=== PATIENT | male | born 1970 | race Caucasian/White ===

== ENCOUNTER 2017-08-29 13:00 | Outpatient (RCR) | payer OTHER, SELFPAY | END 2017-08-29 13:05 | disposition home or self-care (01) | LOC: PT 13:00 | PROVIDERS: Family Provider Student in an Organized Health Care Education/Training Program; Visit Provider Student in an Organized Health Care Education/Training Program | DX: M72.2 Plantar fascial fibromatosis (principal) | CPT/HCPCS: 97010; 97033; 97035; 97110; 97140 ==

== ENCOUNTER 2017-09-30 04:01 | Emergency (ER) | payer OTHER, SELFPAY ==
[2017-09-30 04:06] VITALS: BP 145/91; PULSE 86; RESP 18; TEMP 36.8; O2SAT 98; BMI 35.9
[2017-09-30 04:55] LABS: Anion Gap 11.4 mEq/L (5-15); Blood Urea Nitrogen 10 mg/dL (7-18); Carbon Dioxide 27 mmol/L (21.0-32.0); Chloride 103 mmol/L (98-107); Creatinine Clearance Estimated 294 mL/min (0-300); Creatinine,Serum 0.57 mg/dL (0.70-1.30); Estimated Glomerular Filt Rate 155 ml/min (>60); GFR (African American) 187 ML/MIN (>60); Glucose 113 mg/dL (74-106); Potassium 3.4 mmoL/L (3.5-5.1); Sodium 138 mmol/L (136-145)
[2017-09-30 04:56] LABS: Basophils % 0.3 % (0.1-2.0); Eosinophils % 0.9 % (0.1-12.0); Hematocrit 44.9 % (42.0-52.0); Hemoglobin 14.6 g/dL (14.1-18.0); Lymphocytes # 0.8 K/mm3 (0.7-4.5); Lymphocytes % 18.7 K/mm3 (10-50); Mean Corpuscular HGB Conc 32.4 g/dL (31.8-35.4); Mean Corpuscular Hemoglobin 29.4 pg (27.0-31.2); Mean Corpuscular Volume 90.5 fl (80-94); Mean Platelet Volume 7.6 fl (7.4-10.4); Monocytes # 0.4 K/mm3 (0.1-1.0); Monocytes % 8.8 % (1.7-9.3); Neutrophils % 71.2 % (37.0-80.0); Platelet Count 112 K/mm3 (142-424); Red Blood Count 4.96 M/mm3 (4.60-6.20); Red Cell Distribution Width 13.8 % (11.5-17.5); White Blood Count 4.2 K/mm3 (4.8-10.8)
--- NOTE | 2017-09-30 05:19 | [facility].EDBACK ---
ED Disposition Clinical Impression: Strain of lumbar region Qualifiers: Encounter type: initial encounter Qualified Code(s): S39.012A - Strain of muscle, fascia and tendon of lower back, initial encounter Disposition: Home, Self-Care Condition on Discharge: Good Instructions: DI for Low Back Pain Additional Instructions: use meds and see pcp for follow up Prescriptions: Benzonatate [Tessalon Perle 100mg Cap] 100 mg PO TID #30 cap Referrals: Claudia Liu APRN [Primary Care Provider] - - Critical Care Critical Care Time: No Attestation: On 09/30/17, the high probability of a clinically significant, sudden or life threatening deterioration of the following system(s) required my full and direct attention, intervention and personal management. The time I documented below is in addition to time spent performing reported procedures but includes the following listed in this critical care notation. Medical Decision Making - Medical Records Medical records reviewed: Yes: I reviewed the patient's medical records. - [place] Inquiry Pt receiving controlled substance: No Vital Signs: 09/30/17 04:06 Temperature 98.3 F Temperature Source Oral Pulse Rate [Left Radial] 86 Respiratory Rate 18 Blood Pressure [Left Arm] 145/91 Blood Pressure Mean [Left Arm] 109 Blood Pressure Source [Left Arm] Automatic Cuff Blood Pressure Position [Left Arm] Sitting 02 Sat by Pulse Oximetry 98 Oxygen Delivery Method Room Air - Lab Data Lab results reviewed: Yes: I reviewed the patient's lab results. Lab Results 09/30/17 04:35: Sodium 138, Potassium 3.4 L, Chloride 103, Carbon Dioxide 27, Anion Gap 11.4, BUN 10, Creatinine 0.57 L, Estimated Creat Clear 294, Estimated GFR 155, Est GFR ( Amer) 187, Glucose 113 H 09/30/17 04:35: WBC 4.2 L, RBC 4.96, Hgb 14.6, Hct 44.9, MCV 90.5, MCH 29.4, MCHC 32.4, RDW 13.8, Plt Count 112 L, MPV 7.6, Neut % (Auto) 71.2, Lymph % (Auto) 18.7, [place] % (Auto) 8.8, Eos % (Auto) 0.9, Baso % (Auto) 0.3, Neut # (Auto) 3.0, Lymph # (Auto) 0.8, [place] # (Auto) 0.4, Eos # (Auto) 0.0, Baso # (Auto) 0.0 Result diagrams: 09/30/17 04:35 09/30/17 04:35 Orders (Tests/Meds): ED MEDICATIONS Generic Name Dose Route Start Last Admin Trade Name Freq PRN Reason Stop Dose Admin Sodium Chloride 1,000 mls @ 999 mls/hr 09/30/17 04:30 09/30/17 04:31 Sod Chlor 0.9% 1000ml Bag IV 09/30/17 05:30 999 mls/hr .Q1H1M LIDIA Administration Discontinued Medications Generic Name Dose Route Start Last Admin Trade Name Freq PRN Reason Stop Dose Admin Ketorolac Tromethamine 30 mg 09/30/17 04:16 09/30/17 04:31 Toradol 30mg/Ml Vial IV 09/30/17 04:17 30 mg ONCE ONE Administration Ondansetron HCl 4 mg 09/30/17 04:16 09/30/17 04:31 Zofran 4mg/2ml Vial IV 09/30/17 04:17 4 mg ONCE ONE Administration Back Pain HPI - General Chief Complaint: Back Pain/Injury Stated Complaint: Lower Back Pain Time Seen by Provider: 09/30/17 05:19 Mode of Arrival: Ambulatory Source of Information: Patient Limitations: No Limitations Description of Symptoms (Recalled from ER Triage Doc. by RN): low back pain, diagnosed with flu yesterday, unable to keep zofran or other meds down, due to vomiting - History of Present Illness HPI Narrative: pt with known back pain now with flu and coughing excerbated back problems MD Complaint: back pain Onset (ago): hour(s) Duration: intermittent Similar Symptoms Previously: Yes Location: lumbar spine Severity: moderate Context: bending - Related Data Home Medications Medication Instructions Recorded Confirmed lisinopril 20 mg tablet 1 tab PO DAILY 30 Days #08/11/17 09/30/17 meloxicam 7.5 mg tablet 1 tab PO DAILY 30 Days #08/11/17 09/30/17 montelukast 10 mg tablet 1 tab PO DAILY 30 Days #30 08/11/17 09/30/17 Oseltamivir Phosphate [Tamiflu 75 mg PO BID 09/30/17 09/30/17 75mg Capsule] Previous Rx's Medication Instructions Recorde
--- NOTE | 2017-09-30 05:23 | ED_ITS ---
ED Disposition Clinical Impression: Strain of lumbar region Qualifiers: Encounter type: initial encounter Qualified Code(s): S39.012A - Strain of muscle, fascia and tendon of lower back, initial encounter Disposition: Home, Self-Care Condition on Discharge: Good Instructions: DI for Low Back Pain Additional Instructions: use meds and see pcp for follow up Prescriptions: Benzonatate [Tessalon Perle 100mg Cap] 100 mg PO TID #30 cap Referrals: Claudia Liu APRN [Primary Care Provider] - - Critical Care Critical Care Time: No Attestation: On 09/30/17, the high probability of a clinically significant, sudden or life threatening deterioration of the following system(s) required my full and direct attention, intervention and personal management. The time I documented below is in addition to time spent performing reported procedures but includes the following listed in this critical care notation. Medical Decision Making - Medical Records Medical records reviewed: Yes: I reviewed the patient's medical records. - [place] Inquiry Pt receiving controlled substance: No Vital Signs: 09/30/17 04:06 Temperature 98.3 F Temperature Source Oral Pulse Rate [Left Radial] 86 Respiratory Rate 18 Blood Pressure [Left Arm] 145/91 Blood Pressure Mean [Left Arm] 109 Blood Pressure Source [Left Arm] Automatic Cuff Blood Pressure Position [Left Arm] Sitting 02 Sat by Pulse Oximetry 98 Oxygen Delivery Method Room Air - Lab Data Lab results reviewed: Yes: I reviewed the patient's lab results. Lab Results 09/30/17 04:35: Sodium 138, Potassium 3.4 L, Chloride 103, Carbon Dioxide 27, Anion Gap 11.4, BUN 10, Creatinine 0.57 L, Estimated Creat Clear 294, Estimated GFR 155, Est GFR ( Amer) 187, Glucose 113 H 09/30/17 04:35: WBC 4.2 L, RBC 4.96, Hgb 14.6, Hct 44.9, MCV 90.5, MCH 29.4, MCHC 32.4, RDW 13.8, Plt Count 112 L, MPV 7.6, Neut % (Auto) 71.2, Lymph % (Auto ) 18.7, [place] % (Auto) 8.8, Eos % (Auto) 0.9, Baso % (Auto) 0.3, Neut # (Auto) 3.0, Lymph # (Auto) 0.8, [place] # (Auto) 0.4, Eos # (Auto) 0.0, Baso # (Auto) 0.0 Result diagrams: 09/30/17 04:35 09/30/17 04:35 Orders (Tests/Meds): ED MEDICATIONS Generic Name Dose Route Start Last Admin Trade Name Freq PRN Reason Stop Dose Admin Sodium Chloride 1,000 mls @ 999 mls/hr 09/30/17 04:30 09/30/17 04:31 Sod Chlor 0.9% 1000ml Bag IV 09/30/17 05:30 999 mls/hr .Q1H1M LIDIA Administration Discontinued Medications Generic Name Dose Route Start Last Admin Trade Name Freq PRN Reason Stop Dose Admin Ketorolac Tromethamine 30 mg 09/30/17 04:16 09/30/17 04:31 Toradol 30mg/Ml Vial IV 09/30/17 04:17 30 mg ONCE ONE Administration Ondansetron HCl 4 mg 09/30/17 04:16 09/30/17 04:31 Zofran 4mg/2ml Vial IV 09/30/17 04:17 4 mg ONCE ONE Administration Back Pain HPI - General Chief Complaint: Back Pain/Injury Stated Complaint: Lower Back Pain Time Seen by Provider: 09/30/17 05:19 Mode of Arrival: Ambulatory Source of Information: Patient Limitations: No Limitations Description of Symptoms (Recalled from ER Triage Doc. by RN): low back pain, diagnosed with flu yesterday, unable to keep zofran or other meds down, due to vomiting - History of Present Illness HPI Narrative: pt with known
[2017-09-30 05:42] VITALS: BP 138/76; PULSE 84; RESP 16; TEMP 36.9; O2SAT 98
== END 2017-09-30 05:44 | disposition home or self-care (01) ==
PROVIDERS: Emergency Provider Emergency Medicine; PCP Nurse Practitioner Family
DX: S39.012A Strain of muscle, fascia and tendon of lower back, initial encounter (principal); I10 Essential (primary) hypertension; F17.210 Nicotine dependence, cigarettes, uncomplicated
CPT/HCPCS: 80048; 85025; 96365; 96375; 99282; J2405

== ENCOUNTER 2017-11-09 10:00 | Outpatient (RCR) | payer OTHER, SELFPAY | END 2017-11-09 10:01 | disposition home or self-care (01) | LOC: PT 10:00 | PROVIDERS: PCP Nurse Practitioner Family; Visit Provider Student in an Organized Health Care Education/Training Program | DX: M54.32 Sciatica, left side (principal) | CPT/HCPCS: 97014; 97110; 97163; G0283 ==

== ENCOUNTER 2018-01-19 14:00 | Outpatient (RCR) | payer OTHER, SELFPAY | END 2018-01-19 14:01 | disposition home or self-care (01) | LOC: PT 14:00 | PROVIDERS: PCP Nurse Practitioner Family; Visit Provider Student in an Organized Health Care Education/Training Program | DX: M72.2 Plantar fascial fibromatosis (principal); M54.32 Sciatica, left side | CPT/HCPCS: 97010; 97014; 97035; 97110; 97163; G0283 ==

== ENCOUNTER → 2019-05-11 12:16 | Outpatient (CLI) | payer OTHER, SELFPAY ==
--- NOTE | 2019-05-11 13:06 | MR_ITS ---
PROCEDURE: MR THORACIC SPINE WO CON CLINICAL INDICATION: BACK PAIN, NECK PAIN Back pain with weakness down right arm with headache with pressure in back COMPARISON: No exams were available for comparison TECHNIQUE: Routine multiplanar multi echo sequences are performed without gadolinium enhancement. FINDINGS: Normal alignment. No fracture or dislocation. The spinal cord has an unremarkable appearance. There is mild multilevel degenerative changes with disc desiccation in the upper and midthoracic spine with multiple level Schmorl's nodes from T8-T12 with irregularity of the endplates. No disc herniation, canal stenosis, or other significant anomaly evident.. There is a small left paracentral disc protrusion at T9-T10 IMPRESSION: Mild multilevel spondylosis with disc desiccation and multilevel endplate irregularity and Schmorl's nodes in the lower thoracic spine which may be seen with Scheuermann's disease with small left paracentral disc protrusion at T9-T10 otherwise negative Dictated by: Franklin Becerra MD 05/11/2019 16:50 Electronically signed by Franklin Becerra MD in [place] 05/12/2019 09:03
--- NOTE | 2019-05-11 15:06 | MR_ITS ---
PROCEDURE: MR CERVICAL SPINE WO CON CLINICAL INDICATION: NECK PAIN Neck pain, weakness down right arm with headache COMPARISON: No exams were available for comparison TECHNIQUE: Standard multiplanar multiecho sequences are performed without contrast. 3-D MIP and myelographic images are also rendered and reviewed FINDINGS: There is normal alignment. C2-C3: Unremarkable. C3-C4: Mild uncovertebral hypertrophy with mild bilateral foraminal narrowing slightly greater on the left compared to the right. C4-C5: Mild right foraminal narrowing. C5-C6: There is degenerative disc disease with a small central/right paracentral disc protrusion/herniation which is abutting the anterior aspect of the cord without cord displacement. There is mild right lateral recess narrowing. C6-C7: Mild degenerative disc disease with minimal central disc protrusion. This appears somewhat accentuated on the axial T2 weighted images but not confirmed on the additional sequences. C7-T1: Unremarkable. The craniocervical junction has an unremarkable appearance. IMPRESSION: 1. C3-C4: Mild uncovertebral hypertrophy with mild bilateral foraminal narrowing slightly greater on the left compared to the right. 2. C4-C5: Mild right foraminal narrowing. 3. C5-C6: There is degenerative disc disease with a small central/right paracentral disc protrusion/herniation which is abutting the anterior aspect of the cord without cord displacement. There is mild right lateral recess narrowing. 4. C6-C7: Mild degenerative disc disease with minimal central disc protrusion. This appears somewhat accentuated on the axial T2 weighted images but not confirmed on the additional sequences. Dictated by: Franklin Becerra MD 05/11/2019 16:50 Electronically signed by Franklin Becerra MD in [place] 05/12/2019 08:58
== END ==
PROVIDERS: PCP Family Medicine; Visit Provider Physician Assistant Medical
DX: M54.9 Dorsalgia, unspecified (principal)
CPT/HCPCS: 72141; 72146; 76376